=== PATIENT | male | born 1975 | race Two or more races ===

== ENCOUNTER → 2021-11-09 14:12 | Outpatient (CLI) | payer OTHER, SELFPAY ==
--- NOTE | 2021-11-09 14:12 | CT_ITS ---
FINAL REPORT TECHNIQUE: Thin section axial CT images of the facial bones and sinuses were obtained without contrast. Coronal reformatted images were also obtained. This study was performed with techniques to keep radiation doses as low as reasonably achievable, (ALARA). Individualized dose reduction techniques using automated exposure control or adjustment of mA and/or kV according to the patient''''s size were employed. CLINICAL HISTORY: hx sinus drainage x 3 months FINDINGS: There is no evidence of mucosal thickening. There is a small retention cyst or polyp at the floor of the right maxillary sinus. No fluid levels are identified. The ostiomeatal units have an unremarkable appearance. The nasal septum is in the midline. No fracture or acute bony abnormality is identified. IMPRESSION: Small retention cyst or polyp in the floor the right maxillary sinus. Reviewed, Interpreted and Dictated by Deon Ontiveros MD Transcribed by Charo Womack Authenticated by Deon Ontiveros MD on 11/09/2021 03:54:49 PM [facility]
== END ==
PROVIDERS: PCP Nurse Practitioner Family; Visit Provider Otolaryngology
DX: R09.81 Nasal congestion (principal)
CPT/HCPCS: 70486

== ENCOUNTER → 2022-02-13 12:24 | Outpatient (CLI) | payer OTHER, SELFPAY ==
--- NOTE | 2022-02-13 12:40 | ECG_ITS ---
APPROVED REPORT Exam: Resting ECG HR:72 bpm ECG Measurements Heart Rate 72 AXES ID 151 P 78 QRSd 91 QRS 91 QT 351 T 69 QTc 375 Conclusion SINUS RHYTHM BORDERLINE RIGHT AXIS DEVIATION [QRS AXIS > 90] BORDERLINE ECG UNCONFIRMED REPORT Electronically signed by : Juan Choi MD 02/13/2022 15:57:23
[2022-02-13 12:56] LABS: Basophils # 0.1 K/mm3 (0-0.2); Basophils % 1.1 % (0.1-2.0); Eosinophils # 0.1 K/mm3 (0.0-0.4); Eosinophils % 0.9 % (0.1-12.0); Hematocrit 44.2 % (42.0-52.0); Hemoglobin 15.3 g/dL (14.1-18.0); Lymphocytes # 1.6 K/mm3 (0.7-4.5); Lymphocytes % 25.7 % (10-50); Mean Corpuscular HGB Conc 34.6 g/dL (31.8-35.4); Mean Corpuscular Hemoglobin 31.9 pg (27.0-31.2); Mean Corpuscular Volume 92.2 fl (80-94); Mean Platelet Volume 7.2 fl (7.4-10.4); Monocytes # 0.3 K/mm3 (0.1-1.0); Monocytes % 5.2 % (1.7-9.3); Neutrophils % 67.2 % (37.0-80.0); Platelet Count 294 K/mm3 (142-424); Red Blood Count 4.79 M/mm3 (4.60-6.20); Red Cell Distribution Width 12.7 % (11.5-17.5)
[2022-02-13 13:41] LABS: Anion Gap 11.8 mEq/L (5-15); Blood Urea Nitrogen 14 mg/dl (9-20); Calcium 9.1 mg/dl (8.4-10.2); Carbon Dioxide 26 mmol/L (22.0-30.0); Chloride 106 mmol/L (98-107); Estimated Glomerular Filt Rate 80 ml/min (>60); GFR (African American) 97 ML/MIN (>60); Glucose 94 mg/dl (74-100); Potassium 4.8 mmoL/L (3.5-5.1); Sodium 139 mmol/L (136-145)
== END ==
PROVIDERS: PCP Nurse Practitioner Family; Visit Provider Otolaryngology
DX: Z01.812 Encounter for preprocedural laboratory examination (principal); Z11.52 Encounter for screening for COVID-19; J34.2 Deviated nasal septum; J34.3 Hypertrophy of nasal turbinates
CPT/HCPCS: 36415; 80048; 85025; 93005; C9803; U0003; U0005

== ENCOUNTER 2022-02-15 06:03 | Day surgery (SDC) | payer OTHER, SELFPAY ==
[2022-02-13 09:04] VITALS: BMI 24.6
[2022-02-15] VITALS (10 sets, daily range): BP systolic 113–140; BP diastolic 71–95; PULSE 71–94; RESP 14–18; TEMP 36.3–36.6; O2SAT 98–100
--- NOTE | 2022-02-15 08:19 | HMH.ANESCL ---
[facility] Anesthesia Checklist - Patient Identification Patient Identification: Arm Band, Verbal (Name & ) - Structural Data Admitted From: Home Planned Operative Procedure/s: Septoplasty Consent for Planned Operative Procedure(s) Verified: Yes Verified Documents: Surgical Consent - NPO Status Verified Time NPO: 00:00 - Additional verifications Anesthesia Reactions: No Hx Blood Transfusions: No Blood Transfusion Reaction: No - Anesthesia Plan Anesthesia Risk discussed: Yes ASA Class: II Anesthesia Type: General [facility] History Medical History: Reports:: Hypertension Denies:: Cancer, Diabetes Mellitus Type 1, Diabetes Mellitus Type 2, Internal Pacemaker, MRSA, Seizures *Have you ever received a pneumonia vaccine?: No *Have you received a flu vaccine this season?: No Other Medical History: Reports: Sinus Problems. Denies: Blood Transfusion Reaction Anesthesia experience/problems:: no issues Other Surgeries: Yes: No Previous Surgery. No: Pacemaker Amputation: No Fractures: No - *Social History Last grade of school completed: High school graduate Smoking Status: Never smoker Alcohol Intake: never Substance Use Type: denies use *Occupational Status:: employed *Travel in the last 8 weeks: None Family Hx:: Diabetes
--- NOTE | 2022-02-15 09:00 | HMH.OPNOTE ---
Date of procedure: 02/15/22 Pre-op Diagnosis:: Deviated septum, turbinate hypertrophy Post-op Diagnosis:: Deviated septum, turbinate hypertrophy Procedure performed:: Septoplasty, submucous resection of right inferior turbinate Surgeon:: Gerardo Garces MD BENEFITS TECHNICIAN:: Other Anesthesia: GETA Estimated blood loss (mL): 50 Operative findings:: Severely deviated septum anteriorly to the right and posteriorly to the left, turbinate hypertrophy right Operative note:: Patient was brought to the operating room and after adequate general anesthesia the nose was draped in the usual sterile fashion and 1% lidocaine with epinephrine used to locally infiltrate the septum and right inferior turbinate and then a right hemitransfixion incision was made and mucoperichondrial flaps elevated off the bony and cartilaginous septum bilaterally. A large bony spur posteriorly to the left was resected as was a cartilaginous spur on the floor the nose on the right side and then the cartilaginous septum was mobilized and brought back over the midline maxillary crest and the caudal septum centered between the medial crura and then the mucosal flaps returned to anatomic position and held in place with a 4-0 plain gut horizontal mattress suture and hemitransfixion incision closed with 4-0 chromic. Submucosal resection of the redundant soft tissue of the right inferior turbinate was performed using a microdebrider and turbinate blade through an anterior stab incision. The bone of the inferior turbinate was then lateralized bilaterally with the Savita elevator. Tapia splints were then placed on the septum bilaterally and secured to the columella using 3-0 nylon and the procedure concluded. All counts correct. Blood loss less than 50 mL. Patient was sent recovery in stable condition. Condition: stable Disposition: PACU Complications:: none
--- NOTE | 2022-02-15 09:15 | HMH.ANESI ---
[facility] Anesthesia Record Part I Intake, IV Amount: 1,000 Estimated blood loss (mL): 20 Urine output (mL): 0 Blood Pressure: 113/82 SaO2: 100 Pulse Rate: 94 Respiratory Rate: 14 Temperature: 97.5 F Patient is:: Drowsy Stable to PACU at:: 09:12
--- NOTE | 2022-02-15 09:50 | SUR.PHASEI ---
0941-detailed report given to andrés neal in post op at this time 0943- pt left in stable condition with andrés neal in post op.
--- NOTE | 2022-02-15 10:51 | P.PN_ITS ---
[facility] Anesthesia Record Part II Discharge Time: 09:42 Destination: Surgical Day Care (OP Surgery) PACU nurse assessment reviewed?: Yes Patient Condition:: Good Anesthesia Complications:: None Swallowing reflex intact?: Yes Cyanosis?: No Blood Pressure: 127/91 Pulse Rate: 85 Temperature: 97.6 F Mental Status: Alert & Oriented Pain level:: 0 Nausea and/or vomitting:: None Intake, IV Amount: 0
== END 2022-02-15 10:15 | disposition home or self-care (01) ==
LOC: OR 06:04
PROVIDERS: PCP Nurse Practitioner Family; Visit Provider Otolaryngology
PROC: (CPT 30520; principal; 2022-02-15 07:30)
DX: J34.2 Deviated nasal septum (principal); J34.3 Hypertrophy of nasal turbinates; I10 Essential (primary) hypertension; Z83.3 Family history of diabetes mellitus
CPT/HCPCS: 30520; 30140; 96374; J2405; J2710